=== PATIENT | male | born 2000 | race American Indian/Alaskan Native ===

== ENCOUNTER 2020-10-19 16:39 | Emergency (ER) | payer OTHER ==
[~2020-10-19] VITALS: Ht 177.8 cm; Wt 96.6 kg
[~2020-10-19 16:39] MED LIST: CORTIZONE-1028 GM TP; KEFLEX500 MG PO; MEDROL4 M1 PO; NORCO 5-325 TA1 EACH PO; SEPTRA DS TABL1 EACH PO
--- OUTSIDE RECORDS SUMMARY | 2020-10-19 16:42 | XMS ---
PreManage Notification: ELAINE DURAN Security [employer] Events No recent Security Events currently on file CRITERIA MET - [facility] Has Care Guidelines CARE PROVIDERS There are no care providers on record at this time. Guidelines Source: [facility] [place] Guidelines Date: 11/18/2019 Care Coordination: Member is currently enrolled in Mental Health Services through [facility]. If services are needed through [facility] please call: Melody [phone] Lauren/Joni Nevarez\\[facility]; [phone] Crisis [phone] E.DJaret VISIT COUNT (12 MO.) 1 [facility] TOTAL 1 NOTE: Visits indicate total known visits. ED/UCC VISIT TRACKING (12 MO.) 10/19/2020 16:[address] [facility] [place] TYPE: Emergency COMPLAINT: - MEDICAL CLEARANCE INPATIENT VISIT TRACKING (12 MO.) No inpatient visits to display in this time frame [email or web address]
== END 2020-10-20 09:12 ==
LOC: ED 16:39
DX: R45.851 Suicidal ideations (principal); F32.9 Major depressive disorder, single episode, unspecified; Z20.822 Contact with and (suspected) exposure to COVID-19
CPT/HCPCS: 80053; 80176; 81001; 84443; 85025; 99285; C9803; U0003